=== PATIENT | female | born 1990 | race Caucasian/White ===

== ENCOUNTER 2019-01-26 10:43 | Emergency (ER) | payer MEDICAID, OTHER ==
[2019-01-26] MEDS ORDERED: 0.9 % SODIUM CHLORIDE 1,000 ML BAG IV ONE (10:53)
[2019-01-26] MEDS ORDERED: ONDANSETRON HCL IV 4 MG/2 ML VIAL IV ONE (10:53)
--- NOTE | 2019-01-26 11:06 | Emergency Department Record ---
History of Present Illness - General Chief Complaint: Alcohol Intoxication Stated Complaint: INTOXICATED Time Seen by Provider: 01/26/19 10:50 Source: Patient Mode of Arrival: Ambulatory Limitations: No limitations - History of Present Illness Initial Comments: The patient is here due to drinking to much alcohol last evening and developing nausea and persistent vomiting for the last 8 hours. She denies any AP, CP, SOB, or vomiting any blood. The patient does have a mild SOTO but she states that is pretty normal for her given how much alcohol she drank last evening. She denies any trauma or concerns about sexual assault. MD Complaint: Alcohol intoxication Time Since Last Drink: 8 -: Hour(s) Recent Trauma: No Associated Symptoms: Nausea, Vomiting Treatments Prior to Arrival: None - Jeanie Coma Scale Eye Response: (4) Open spontaneously Motor Response: (6) Obeys commands Verbal Response: (5) Oriented Jeanie Total: 15 - Related Data Previous Rx's Medication Instructions Recorded Ondansetron [Zofran Odt] 4 mg SL .Q4-6H PRN #12 tab.rapdis 01/26/19 Allergies Allergy/AdvReac Type Severity Reaction Status Date / Time latex Allergy RASH Verified 01/26/19 10:49 aspirin AdvReac PT UNSURE Verified 01/26/19 10:49 OF REACTION Travel Screening - Travel/Exposure Within Last 30 Days Have you traveled within the last 30 days?: No Review of Systems Constitutional: Denies: Chills, Fever Eyes: Denies: Eye discharge ENT: Denies: Congestion Respiratory: Denies: Cough, Dyspnea Cardiovascular: Denies: Arrhythmia Endocrine: Reports: Fatigue Gastrointestinal: Reports: Nausea, Vomiting. Denies: Diarrhea Genitourinary: Denies: Dysuria Musculoskeletal: Denies: Arthralgia Psychiatric: Denies: Anxiety Past Medical History - SOCIAL HISTORY Smoking Status: Never smoker Alcohol Use: Occasional Drug Use: None - RESPIRATORY Hx Respiratory Disorders: Yes Hx Asthma: Yes - CARDIOVASCULAR Hx Cardio Disorders: No - NEURO Hx Neuro Disorders: No - GI Hx GI Disorders: No - Hx Genitourinary Disorders: No - ENDOCRINE Hx Endocrine Disorders: No - MUSCULOSKELETAL Hx Musculoskeletal Disorders: No - PSYCH Hx Psych Problems: Yes Hx Depression: Yes - HEMATOLOGY/ONCOLOGY Hx Hematology/Oncology Disorders: No Family Medical History Any Significant Family History?: Yes Hx Heart Disease: Grandparents Physical Exam - General General Appearance: Alert, Oriented x3, Cooperative, No acute distress - Eye Eye exam: Normal appearance, PERRL - ENT Throat exam: Normal inspection. negative: Tonsillar erythema, Tonsillar exudate - Neck Neck exam: Normal inspection, Full ROM. negative: Tenderness - Respiratory Respiratory exam: Normal lung sounds bilaterally. negative: Respiratory distress - Cardiovascular Cardiovascular Exam: Regular rate, Normal rhythm, Normal heart sounds - GI/Abdominal GI/Abdominal exam: Soft, Normal bowel sounds. negative: Tenderness - Extremities Extremities exam: Normal inspection, Full ROM, Normal capillary refill. negative: Tenderness - Back Back exam: Reports: Normal inspection - Neurological Neurological exam: Alert, Normal gait. negative: Abnormal gait, Motor sensory deficit - Psychiatric Psychiatric exam: negative: Anxious Course Vital Signs 01/26/19 10:47 Temperature 98.2 F Pulse Rate [ 100 H Pulse Ox Probe] Respiratory 22 Rate Blood Pressure 150/114 [Left Arm] Pulse Ox 98 - Reevaluation(s) Reevaluation #1: The patient is doing a lot better at this time. She denies any pain and states her nausea is much improved. 01/26/19 11:45 Reevaluation #2: The patient is doing much better at this time. She denies any pain or discomfort and states her nausea is much improved. She does feel ready for home. 01/26/19 12:38 Medical Decision Making - Lab Data Result diagrams: 01/26/19 10:55 01/26/19 10:55 Disposition Disposition: Discharge Clinical Impression: Vomiting alone Disposition: Home, Self-Care Condition: (2) Stable Instructions: Alcohol Intoxication (ED) Additional Instructions: Please do not have anything to eat or drink for 3 hours then slowly restart. Use the Zofran for nausea if needed. Return to the ER for any worsening symptoms. Please also see your family doctor next week to have your blood pressure rechecked. Prescriptions: Ondansetron [Zofran Odt] 4 mg SL .Q4-6H PRN #12 tab.rapdis PRN Reason: Nausea Forms: Patient Portal Access Time of Disposition: 12:36 Quality - Quality Measures Quality Measures: N/A - Blood Pressure Screening View Details: Yes Does Patient Have Any of the Following: No Blood Pressure Classification: Hypertensive Reading Systolic Measurement: 153 Diastolic Measurement: 103 Screening for High Blood Pressure: < First Hypertensive BP, F/U Documented > [[id number]] First Hypertensive Follow-up Interventions: Referral to alternative/primary care provider.
[2019-01-26 11:08] LABS: ABSOLUTE NEUTROPHIL COUNT 6.75; BASO % 0.1 % (0-6); EOS % 0.7 % (0-6); GRAN % 73.9 % (47-80); HEMATOCRIT 45.6 % (35.0-47.0); HEMOGLOBIN 14.6 gm/dl (11.6-16.0); LYMPH % 21.4 % (16-45); MEAN CELL VOLUME 87.7 fl (81-97); MEAN CORPUSCULAR HEMOGLOBIN 28.1 pg (27-33); MEAN PLATELET VOLUME 8.7 fl (7.4-10.4); MONO % 3.9 % (0-9); PLATELET COUNT 497 K/uL (130-400); WHITE BLOOD COUNT W/O DIFF 9.1 K/uL (4.2-12.2)
[2019-01-26 11:17] LABS: BLOOD UREA NITROGEN 8 mg/dL (6-20); CREATININE 0.5 mg/dL (0.5-0.9); EST GLOMERULAR FILTRATION RATE > 60 mL/min
[2019-01-26 11:18] LABS: TOTAL PROTEIN 8.2 g/dL (6.6-8.7)
[2019-01-26 11:20] LABS: GLUCOSE,RANDOM 121 mg/dL (74-109)
[2019-01-26] MEDS ORDERED: METOCLOPRAMIDE HCL 10 MG/2 ML VIAL IVP ONE (11:22)
[2019-01-26] MEDS ORDERED: DIPHENHYDRAMINE HCL 50 MG/ML VIAL IVP ONE (11:22)
[2019-01-26 11:23] LABS: ALB/GLOB RATIO 1.4 (1.1-1.8); ALBUMIN 4.8 g/dL (4.0-5.0); ALKALINE PHOSPHATASE 96 U/L (35-104); ALT/SGPT 16 U/L (<33); AST/SGOT 16 U/L (10.0-35.0)
[2019-01-26 11:24] LABS: ALCOHOL 0.066 g/dL (0-0.010)
[2019-01-26] MEDS ORDERED: ONDANSETRON HCL IV 4 MG/2 ML VIAL IVP ONE (12:17)
== END 2019-01-26 12:45 | disposition home or self-care (01) ==
LOC: ER 10:43
DX: R11.2 Nausea with vomiting, unspecified (principal); R51 Headache; F10.129 Alcohol abuse with intoxication, unspecified; Y90.3 Blood alcohol level of 60-79 mg/100 ml
CPT/HCPCS: 99284 ×2; 96376; 96374; 96375; 96361; 85025; 80053; 84703; G0480; J2405; 80320; J1200; J2765; J7030